=== PATIENT | male | born 1950 | race Caucasian/White ===

== ENCOUNTER → 2019-03-11 | Emergency (ER) | payer OTHER ==
[~2019-03-11] VITALS: Ht 185.4 cm; Wt 88.5 kg
[~2019-03-11] MED LIST: ANTACID SUSP 30 ML UDC (MYLANTA) ONE; ANTACID SUSP 30 ML UDC (MYLANTA) PO ONE; ASPIRIN 81 MG CHEW (CHILDREN'S ASA) PO ONE; LIDOCAINE 2% VISCOUS 15 ML UDC ONE; LIDOCAINE 2% VISCOUS 15 ML UDC PO ONE; NITROGLYCERIN 0.4 MG SL TABS BTL 25'S SL PRN; fentaNYL INJECTION 100 MCG/2 ML AMP IVP ONE
--- NOTE | 2019-03-11 15:59 | ED Chest Pain ---
General Chief Complaint: Chest Pain Source: patient Exam Limitations: no limitations History of Present Illness Date Seen by Provider: Mar 11, 2019 Time Seen by Provider: 15:58 Initial Comments To ER by private vehicle with reports of sudden onset of epigastric pain 15 minutes ago while attempting to climb over a wooden fence at home. Pain is rated at 2 out of 10 but the nature and location of the pain concerned him as he has never felt this before. He is not diabetic, nonsmoker and reports that he does not have any known medical troubles. He follows with the [facility] for primary care. Timing/Duration: other (15 mins) Severity/Quality: mild Location: epigastric Radiation: no radiation Activities at Onset: other (as above) Prior CP/Workup: no prior chest pain Modifying Factors: worse with movement ASA po FLYING SHEAR OPERATOR: No NTG SL FLYING SHEAR OPERATOR: No Associated Symptoms: No abdominal pain, No back pain, No shortness of breath Allergies and Home Medications Allergies Coded Allergies: No Known Drug Allergies (Unverified , 03/11/19) Patient Home Medication List Home Medication List Reviewed: Yes Review of Systems Review of Systems Constitutional: see HPI; No chills, No diaphoresis, No fever EENTM: No Symptoms Reported Respiratory: No Symptoms Reported Cardiovascular: No Symptoms Reported Gastrointestinal: See HPI, Abdominal Pain Genitourinary: No Symptoms Reported Musculoskeletal: no symptoms reported Skin: no symptoms reported Psychiatric/Neurological: No Symptoms Reported Endocrine: No Symptoms Reported Hematologic/Lymphatic: No Symptoms Reported Past Bjkogai-Edwdsl-Ouaacj Hx Patient Social History Recent Foreign Travel: No Contact w/Someone Who Travel: No Physical Exam Vital Signs Vital Signs - First Documented Capillary Refill : Height, Weight, BMI Height: '" Weight: lbs. oz. kg; BMI Method: General Appearance: No Apparent Distress, WD/WN HEENT: PERRL/EOMI, TMs Normal Respiratory: No Accessory Muscle Use, No Respiratory Distress Cardiovascular: Regular Rate, Rhythm, Normal Peripheral Pulses, Other (epigastric region is tender to palpation) Gastrointestinal: Non Tender, Soft Extremity: Normal Capillary Refill, Normal Inspection Neurologic/Psychiatric: Alert, Oriented x3 Skin: Normal Color, Warm/Dry Progress/Results/Core Measures Results/Orders Lab Results Laboratory Tests Test 03/11/19 16:10 03/11/19 18:10 Range/Units White Blood Count 4.9 4.3-11.0 10^3/uL Red Blood Count 5.30 4.35-5.85 10^6/uL Hemoglobin 14.7 13.3-17.7 G/DL Hematocrit 43 40-54 % Mean Corpuscular Volume 81 80-99 FL Mean Corpuscular Hemoglobin 28 25-34 PG Mean Corpuscular Hemoglobin Concent 34 32-36 G/DL Red Cell Distribution Width 13.8 10.0-14.5 % Platelet Count 212 130-400 10^3/uL Mean Platelet Volume 9.3 7.4-10.4 FL Neutrophils (%) (Auto) 40 L 42-75 % Lymphocytes (%) (Auto) 49 H 12-44 % Monocytes (%) (Auto) 9 0-12 % Eosinophils (%) (Auto) 2 0-10 % Basophils (%) (Auto) 0 0-10 % Neutrophils # (Auto) 2.0 1.8-7.8 X 10^3 Lymphocytes # (Auto) 2.4 1.0-4.0 X 10^3 Monocytes # (Auto) 0.4 0.0-1.0 X 10^3 Eosinophils # (Auto) 0.1 0.0-0.3 10^3/uL Basophils # (Auto) 0.0 0.0-0.1 10^3/uL Prothrombin Time 14.3 12.2-14.7 SEC INR Comment 1.1 0.8-1.4 Activated Partial Thromboplast Time 33 24-35 SEC Sodium Level 141 135-145 MMOL/L Potassium Level 4.0 3.6-5.0 MMOL/L Chloride Level 110 H 98-107 MMOL/L Carbon Dioxide Level 25 21-32 MMOL/L Anion Gap 6 5-14 MMOL/L Blood Urea Nitrogen 14 7-18 MG/DL Creatinine 0.95 0.60-1.30 MG/DL Estimat Glomerular Filtration Rate > 60 BUN/Creatinine Ratio 15 Glucose Level 98 70-105 MG/DL Calcium Level 9.3 8.5-10.1 MG/DL Corrected Calcium 9.0 8.5-10.1 MG/DL Magnesium Level 2.1 1.8-2.4 MG/DL Total Bilirubin 0.5 0.1-1.0 MG/DL Aspartate Amino Transf (AST/SGOT) 18 5-34 U/L Alanine Aminotransferase (ALT/SGPT) 19 0-55 U/L Alkaline Phosphatase 78 40-136 U/L Myoglobin 39.3 10.0-92.0 NG/ML Troponin I < 0.028 0.040 H <0.028 NG/ML B-Type Natriuretic Peptide 37.0 <100.0 PG/ML Total Protein 7.2 6.4-8.2 GM/DL Albumin 4.4 3.2-4.5 GM/DL My Orders Orders - BALWINDER GARDUNO APRN Cbc With Automated Diff (03/11/19 15:53) Magnesium (03/11/19 15:53) Chest 1 View, Ap/Pa Only (03/11/19 15:53) Ekg Tracing (03/11/19 15:53) Cardiac Profile 1 (03/11/19 15:53) Comprehensive Metabolic Panel (03/11/19 15:53) Myoglobin Serum (03/11/19 15:53) Protime With Inr (03/11/19 15:53) Partial Thromboplastin Time (03/11/19 15:53) O2 (03/11/19 15:53) Monitor-Rhythm Ecg Trace Only (03/11/19 15:53) Lipid Panel (03/12/19 06:00) Ed Iv/Invasive Line Start (03/11/19 15:53) BNP (03/11/19 15:53) Aspirin Chewable Tablet (Baby Aspirin Ch (03/11/19 16:00) Nitroglycerin 0.4 Mg Btl 25's (Nitrostat (03/11/19 16:15) Antacid Suspension (Mylanta Suspension (03/11/19 16:21) Lidocaine 2% Viscous 15 Ml (Xylocaine Vi (03/11/19 16:21) Antacid Suspension (Mylanta Suspension (03/11/19 16:30) Lidocaine 2% Viscous 15 Ml (Xylocaine Vi (03/11/19 16:30) Ekg Tracing (03/11/19 17:24) Ekg Tracing (03/11/19 17:24) Troponin I (03/11/19 18:08) Fentanyl Injection (Sublimaze Injection (03/11/19 19:00) Medications Given in ED Current Medications Medications Dose Ordered Sig/John Route Start Time Stop Time Status Last Admin Dose Admin Al Hydrox/Mg Hydrox/Simethicone 30 ml ONCE ONCE PO 03/11/19 16:30 03/11/19 16:31 DC 03/11/19 16:30 30 ML Aspirin 324 mg ONCE ONCE PO 03/11/19 16:00 03/11/19 16:01 DC 03/11/19 16:09 324 MG Lidocaine HCl 15 ml ONCE ONCE PO 03/11/19 16:30 03/11/19 16:31 DC 03/11/19 16:30 15 ML Nitroglycerin 1 TAB Q 5 MIN X 3 NEEDED PRN SL 03/11/19 16:15 03/11/19 16:14 0.4 MG Vital Signs/I&O 03/11/19 03/11/19 15:47 15:47 Temp 97.7 Pulse 68 Resp 24 B/P (MAP) 139/87 (104) Pulse Ox 98 O2 Delivery Room Air Room Air Departure Communication (Admissions) Discussed with Dr. Cash. Agrees that the EKG does not show any ST elevation. We will admit to hospitalist, he'll consult. Patient still reports pain at 2 out of 10 with no improvement after nitroglycerin or GI cocktail, it is tender to palpation. I do suspect this is muscular skeletal in nature but he does report a history of high cholesterol and has a slight bum in troponin and warrants evaluation by coding support specialist. 1901-patient states that he cannot be admitted because he has to take care of dogs at home. I discussed with him that he will need to sign out against medical advice and this could result in disablity or . . Impression Primary Impression: Chest pain Qualified Codes: R07.9 - Chest pain, unspecified Disposition: AGAINST MEDICAL ADVICE Condition: Against Medical Advice Admissions Decision to Admit Reason: Admit from ER (General) Departure-Patient Inst. Referrals: NO,LOCAL PHYSICIAN (PCP) Primary Care Physician BALWINDER GARDUNO CIGAR SORTER Mar 11, 2019 15:59
[2019-03-11 16:21] LABS: BASOPHILS % (AUTO) 0 % (0-10); EOSINOPHILS # (AUTO) 0.1 10^3/uL (0.0-0.3); EOSINOPHILS % (AUTO) 2 % (0-10); HEMATOCRIT 43 % (40-54); HEMOGLOBIN 14.7 G/DL (13.3-17.7); LYMPHOCYTES # (AUTO) 2.4 X 10^3 (1.0-4.0); LYMPHOCYTES % (AUTO) 49 % (12-44); MEAN CORPUSCULAR HEMOGLOBIN 28 PG (25-34); MEAN CORPUSCULAR HGB CONC 34 G/DL (32-36); MEAN CORPUSCULAR VOLUME 81 FL (80-99); MEAN PLATELET VOLUME 9.3 FL (7.4-10.4); MONOCYTES # (AUTO) 0.4 X 10^3 (0.0-1.0); MONOCYTES % (AUTO) 9 % (0-12); NEUTROPHILS % (AUTO) 40 % (42-75); PLATELET COUNT 212 10^3/uL (130-400); RED CELL DISTRIBUTION WIDTH 13.8 % (10.0-14.5); WHITE BLOOD COUNT 4.9 10^3/uL (4.3-11.0)
--- NOTE | 2019-03-11 16:21 | NUR ---
Pt reports no change in chest pain after nitro. Dino Rouse notified.
[2019-03-11 16:33] LABS: INR 1.1 (0.8-1.4); PROTHROMBIN TIME PATIENT 14.3 SEC (12.2-14.7)
--- NOTE | 2019-03-11 16:40 | NUR ---
Pt reports feeling the same after gi cocktail.
[2019-03-11 16:41] LABS: ALANINE AMINOTRANSFERASE 19 U/L (0-55); ALBUMIN 4.4 GM/DL (3.2-4.5); ALKALINE PHOSPHATASE 78 U/L (40-136); BILIRUBIN,TOTAL 0.5 MG/DL (0.1-1.0); BUN/CREATININE RATIO 15; CALCIUM 9.3 MG/DL (8.5-10.1); CARBON DIOXIDE 25 MMOL/L (21-32); CHLORIDE 110 MMOL/L (98-107); CREATININE SERUM 0.95 MG/DL (0.60-1.30); GFR ESTIMATED > 60; GLUCOSE 98 MG/DL (70-105); MAGNESIUM 2.1 MG/DL (1.8-2.4); SODIUM 141 MMOL/L (135-145); TOTAL PROTEIN 7.2 GM/DL (6.4-8.2)
--- NOTE | 2019-03-11 16:47 | Diagnostic Imaging Report ---
INDICATION: Chest pain. FINDINGS: The lungs are clear. The heart and vessels are normal. There is no effusion or pneumothorax. IMPRESSION: No acute-appearing abnormality. Dictated by: Dictated on workstation # [id number]
--- NOTE | 2019-03-11 19:05 | NUR ---
[facility] in [facility] - 03/11/19 at 1906 by MANPREET Report given to FEROZ Llanes
--- NOTE | 2019-03-11 19:06 | NUR ---
Report given to FEROZ Llanes.
[2019-03-11 19:10] VITALS: BP 137/82
== END | disposition left against medical advice (07) ==
LOC: ER 15:49
DX: R07.9 Chest pain, unspecified (principal)
CPT/HCPCS: 36415; 71045; 80053; 83735; 83874; 83880; 84484; 85025; 85610; 85730; 93005; 93041